=== PATIENT | male | born 1995 | race Caucasian/White ===

== ENCOUNTER 2017-05-23 17:31 | Emergency (ER) | payer SELFPAY ==
[~2017-05-23] VITALS: Ht 180.3 cm; Wt 90.9 kg
[2017-05-23 17:55] VITALS: TEMP 98.9
[2017-05-23 18:13] LABS: BASO % 0.2 % (0.0-2.0); EOS # 0.3 (0.0-0.7); EOS % 4.1 % (0-4.0); GRAN # 4.8 (1.4-6.5); GRAN % 57.6 % (42.2-75.2); HEMATOCRIT 45.9 % (42.0-52.0); HEMOGLOBIN 15.6 g/dl (13.5-18.0); LYMPH # 2.5 (1.2-3.4); LYMPH % 29.9 % (20.0-51.0); MEAN CELL VOLUME 92 fl (80.0-100.0); MEAN CORPUSCULAR HEMOGLOBIN 31 pg (27.0-31.0); MEAN CORPUSCULAR HGB CONC 34 g/dl (33.0-37.0); MEAN PLATELET VOLUME 13.3 fl (7.4-10.4); MONO # 0.7 (0.1-0.6); PLATELET COUNT 152 K/mm3 (130-400); RED BLOOD COUNT 4.98 M/mm3 (4.20-5.60); REDCELL DISTRIBUTION WIDTH-CV 12.3 % (11.5-14.5)
[2017-05-23 18:19] LABS: PROTHROMBIN TIME 12.1 SECONDS (9.7-12.8)
[2017-05-23 18:22] LABS: PARTIAL THROMBOPLASTIN TIME 28.6 SECONDS (26.0-37.0)
[2017-05-23 18:32] LABS: ALANINE AMINOTRANSFERASE 36 U/L (21-72); ALKALINE PHOSPHATASE 62 U/L (50-136); ANION GAP 11 mmol/L (7-16); AST,SGOT 22 U/L (15-37); BILIRUBIN,TOTAL 1.1 mg/dL (0.0-1.0); BLOOD UREA NITROGEN 17 mg/dL (9-20); CALCIUM 8.7 mg/dL (8.4-10.2); CARBON DIOXIDE 25 mmol/L (22-30); CHLORIDE 105 mmol/L (98-107); CREATININE, serum 0.97 mg/dL (0.66-1.25); GLUCOSE 98 mg/dL (74-106); POTASSIUM 3.7 mmol/L (3.4-5.0); SODIUM 141 mmol/L (137-145); TOTAL PROTEIN 7.5 gm/dL (6.4-8.2)
[2017-05-23 18:36] LABS: C-REACTIVE PROTEIN < 0.5 mg/dL (0.0-0.9)
[2017-05-23 19:45] VITALS: BP 118/59
[2017-05-23 20:08] VITALS: PULSE 52
== END 2017-05-23 20:09 | disposition home or self-care (01) ==
LOC: COL.ER 17:31
PROVIDERS: Physician Assistant
DX: R04.1 Hemorrhage from throat (principal); R04.2 Hemoptysis

== ENCOUNTER → 2017-07-12 | Outpatient (CLI) | payer SELFPAY | LOC: COL.RAD 07:16 | DX: S89.81XA Other specified injuries of right lower leg, initial encounter (principal) ==

== ENCOUNTER 2018-08-19 15:28 | Emergency (ER) | payer SELFPAY ==
[~2018-08-19] VITALS: Ht 177.8 cm; Wt 89.5 kg
[2018-08-19] MEDS ORDERED: NORCO 325 MG-51 TAB PO (18:15)
[2018-08-19] MEDS ORDERED: AMOXICILLIN 8751 TAB PO (18:15)
[2018-08-19 18:31] VITALS: BP 115/80; PULSE 88
== END 2018-08-19 18:31 | disposition home or self-care (01) ==
LOC: COL.ER 15:28
DX: S02.31XA Fracture of orbital floor, right side, initial encounter for closed fracture (principal); W50.0XXA Accidental hit or strike by another person, initial encounter; Y92.310 Basketball court as the place of occurrence of the external cause
CPT/HCPCS: J1885

== ENCOUNTER 2018-11-29 13:46 | Emergency (ER) | payer SELFPAY ==
[~2018-11-29] VITALS: Ht 180.3 cm; Wt 88.2 kg
[2018-11-29 14:07] VITALS: BP 128/80; TEMP 98.9
[2018-11-29 15:14] LABS: BASO % 0.2 % (0.0-2.0); EOS # 0.1 (0.0-0.7); EOS % 1.1 % (0-4.0); GRAN % 64.8 % (42.2-75.2); HEMATOCRIT 44.6 % (42.0-52.0); HEMOGLOBIN 14.8 g/dl (13.5-18.0); LYMPH # 1.2 (1.2-3.4); MEAN CELL VOLUME 95 fl (80.0-100.0); MEAN CORPUSCULAR HEMOGLOBIN 31 pg (27.0-31.0); MEAN CORPUSCULAR HGB CONC 33 g/dl (33.0-37.0); MEAN PLATELET VOLUME 13.7 fl (7.4-10.4); MONO # 0.4 (0.1-0.6); MONO % 7.5 % (1.7-9.3); PLATELET COUNT 130 K/mm3 (130-400); RED BLOOD COUNT 4.72 M/mm3 (4.20-5.60); REDCELL DISTRIBUTION WIDTH-CV 12.4 % (11.5-14.5)
[2018-11-29 15:27] LABS: COLLECTION METHOD CLEAN CATCH
[2018-11-29 15:29] LABS: ALANINE AMINOTRANSFERASE 16 U/L (21-72); ALBUMIN 4.2 gm/dL (3.5-5.0); ALKALINE PHOSPHATASE 46 U/L (50-136); ANION GAP 8 mmol/L (7-16); AST,SGOT 22 U/L (15-37); BILIRUBIN,TOTAL 1.5 mg/dL (0.0-1.0); BLOOD UREA NITROGEN 14 mg/dL (9-20); CALCIUM 9.1 mg/dL (8.4-10.2); CARBON DIOXIDE 27 mmol/L (22-30); CHLORIDE 104 mmol/L (98-107); GLUCOSE 89 mg/dL (74-106); LIPASE 42 U/L (23-300); POTASSIUM 4.1 mmol/L (3.4-5.0); SODIUM 139 mmol/L (137-145); TOTAL PROTEIN 7.1 gm/dL (6.4-8.2)
[2018-11-29 15:31] LABS: C-REACTIVE PROTEIN < 0.5 mg/dL (0.0-0.9)
[2018-11-29 15:42] LABS: MUCOUS Present /lpf; PH 7 (5-8); SQUAMOUS EPITHELIAL 0-2 /hpf; URINE APPEARANCE Clear; URINE BACTERIA None Seen /hpf; URINE BILIRUBIN Negative (NEGATIVE); URINE BLOOD Negative (NEGATIVE); URINE COLOR Yellow; URINE GLUCOSE Negative (NEGATIVE); URINE KETONE Negative (NEGATIVE); URINE LEUKOCYTE ESTERASE Negative (NEGATIVE); URINE NITRATE Negative (NEGATIVE); URINE PROTEIN(semi-quant) Negative (NEGATIVE); URINE RBC None Seen /hpf
[2018-11-29 15:48] VITALS: PULSE 57
== END 2018-11-29 15:48 | disposition home or self-care (01) ==
LOC: COL.ER 13:46
PROVIDERS: Family Medicine
DX: K59.00 Constipation, unspecified (principal)
CPT/HCPCS: J2405; J3010; J7030

== ENCOUNTER → 2018-11-29 | Outpatient (CLI) | payer SELFPAY ==
[~2018-11-29] MED LIST: AMOXICILLIN 8751 TAB PO; NORCO 325 MG-51 TAB PO
== END ==
LOC: COL.RAD 11:10
DX: R50.9 Fever, unspecified (principal); R10.13 Epigastric pain
CPT/HCPCS: Q9967

== ENCOUNTER 2020-02-27 20:33 | Emergency (ER) | payer BC ==
[~2020-02-27] VITALS: Ht 182.9 cm; Wt 86.4 kg
[2020-02-27 20:59] VITALS: TEMP 98.4
[2020-02-27 21:43] VITALS: BP 131/83; PULSE 61
== END 2020-02-27 21:43 | disposition home or self-care (01) ==
LOC: COL.ER 20:33
DX: S61.012A Laceration without foreign body of left thumb without damage to nail, initial encounter (principal); W26.0XXA Contact with knife, initial encounter

== ENCOUNTER → 2020-03-08 | Outpatient (CLI) | payer BC | LOC: COL.ER 17:31 | DX: Z48.02 Encounter for removal of sutures (principal) ==

== ENCOUNTER 2021-04-17 21:55 | Emergency (ER) | payer BC ==
[~2021-04-17] VITALS: Ht 182.9 cm; Wt 97.7 kg
[2021-04-17 22:00] VITALS: TEMP 97.5
[2021-04-17 22:45] VITALS: BP 130/88; PULSE 67
== END 2021-04-17 22:45 | disposition home or self-care (01) ==
LOC: COL.ER 21:55
DX: S06.9X1A Unspecified intracranial injury with loss of consciousness of 30 minutes or less, initial encounter (principal); S06.2X1A Diffuse traumatic brain injury with loss of consciousness of 30 minutes or less, initial encounter; W01.198A Fall on same level from slipping, tripping and stumbling with subsequent striking against other object, initial encounter